=== PATIENT | male | born 1980 | race Caucasian/White ===

== ENCOUNTER 2016-12-31 02:17 | Observation (INO) | payer SELFPAY ==
[2016-12-31 03:25] LABS: Bilirubin Negative (Negative); Blood, Urine Negative (Negative); Glucose, Urine (Dipstick) Negative (Negative); Ketone, Urine Negative (Negative); Nitrite Negative (Negative); Protein, Urine (Dipstick) Negative (Neg-Trace); Urobilinogen 0.2 mg/dL (0.2-1.0)
[2016-12-31] MEDS ORDERED: Ondansetron HCl/PF 4 MG/2 ML Vial ONE ×2 (03:25→10:44)
[2016-12-31] MEDS ORDERED: Ketorolac Tromethamine 30 MG/ML VIAL ONE ×2 (03:25→10:44)
[2016-12-31] MEDS ORDERED: Morphine 4 MG/ML VIAL ONE ×2 (03:25→09:17)
[2016-12-31] MEDS ORDERED: Meropenem 1 GM in Sodium Chloride 0.9% 100 ML IVPB SCH ×2 (03:30→12:00)
[2016-12-31 03:31] LABS: #Lymphocytes 1.5 thou/uL (1.20-3.40); #Monocytes 0.8 thou/uL (0.11-0.59); #Neutrophils 8.2 thou/uL (1.40-6.50); %Basophils 0.4 % (0.0-1.0); %Eosinophils 0.4 % (0.0-10.0); %Lymphocytes 14.3 % (21.0-51.0); %Monocytes 7.7 % (0.0-10.0); Hematocrit 45.3 % (42.0-52.0); Mean Platelet Volume 6.6 fL (7.4-10.4); Red Blood Cell (RBC) Count 4.58 mill/uL (4.70-6.10); White Blood Cell (WBC) Count 10.7 thou/uL (4.8-10.8)
[2016-12-31 03:54] LABS: ALT (SGPT) 15 U/L (8-55); AST (SGOT) 21 U/L (5-34); Alkaline Phosphatase 78 U/L (40-150); Anion Gap 11 mmol/L (10-20); BUN (Urea Nitrogen) 14 mg/dL (8.9-20.6); Bilirubin, Total 0.5 mg/dL (0.2-1.2); CK (CPK) 106 U/L (30-200); Calc. Creatinine Clearance 0 mL/min (70-130); Calcium 9.3 mg/dL (7.8-10.44); Carbon Dioxide 26 mmol/L (22-29); Chloride 102 mmol/L (98-107); Estimated GFR-MDRD 77; Globulin 2.7 g/dL (2.4-3.5); Lipase 5 U/L (8-78); Protein, Total 7.2 g/dL (6.0-8.3)
[2016-12-31 04:14] LABS: Prothrombin Time 12.8 SEC (12.0-14.7)
[2016-12-31 04:15] LABS: PTT 28.8 SEC (22.9-36.1)
[2016-12-31] MEDS ORDERED: Ondansetron HCl/PF 4 MG/2 ML Vial IVP PRN ×3 (04:58→11:34)
[2016-12-31] MEDS ORDERED: Ondansetron ODT 4 MG TAB SL PRN (04:58)
[2016-12-31] MEDS ORDERED: Morphine 4 MG/ML VIAL SLOW IVP PRN ×3 (05:00→07:30)
[2016-12-31] MEDS ORDERED: D5 1/2 NS w/20 mEq KCL 1,000 ML IV SCH ×2 (05:00→07:17)
[2016-12-31] MEDS ORDERED: Ondansetron ODT 4 MG TAB PO PRN (07:17)
[2016-12-31] MEDS ORDERED: Dextrose 5% in Water 1,000 ML IV PRN (07:17)
[2016-12-31] MEDS ORDERED: Morphine 4 MG/ML Carpuject IVP PRN (07:17)
[2016-12-31] MEDS ORDERED: Dextrose 50% Abboject 50 ML SYRINGE SLOW IVP PRN (07:17)
[2016-12-31] MEDS ORDERED: hydrALAZINE 20 MG/ML VIAL SLOW IVP PRN (07:17)
[2016-12-31] MEDS ORDERED: Promethazine HCl 25 MG/ML VIAL IM PRN ×2 (07:17→11:34)
--- NOTE | 2016-12-31 07:18 | HP ---
CHIEF COMPLAINT: Appendicitis. HISTORY OF PRESENT ILLNESS: This is a 36-year-old male who presents with acute onset of severe abdom inal pain in the right lower quadrant yesterday at 5:00 p.m. The pain is described as sharp, 10/10, did not radiate. He was seen in the emergency department overnight where CT scan has revealed acute appendicitis. He denies history of this pain. No history of chronic abdominal pain, no diarrhea, co nstipation, dysuria. The pain is associated with nausea, but no vomiting. CT scan in the emergency department has revealed acute appendicitis. PAST MEDICAL HISTORY: HIV on Atripla. PAST SURGICAL HISTORY: Denies. SOCIAL HISTORY: He smokes 1 pack a day of cigarettes. No alcohol or other drugs. MEDICINES TAKEN DAILY: Atripla, tramadol and Topamax. ALLERGIES: No known drug allergies. REVIEW OF SYSTEMS: Ten system review of systems otherwise negative unless described above. PHYSICAL EXAMINATION: HEENT: Sclerae are anicteric. Oropharynx clear. NECK: No lymphadenopathy. LUNGS: Clear. HEART: Regular rate and rhythm. ABDOMEN: Soft, tender in the right lower quadrant, localized guarding, no rebound, no abdominal or i nguinal hernias. EXTREMITIES: No ischemia or edema to extremities. LABORATORY AND X-RAY FINDINGS: White blood cell count is 10, hemoglobin 15, platelet count is 260. Sodium 135, potassium 4.1, creatinine 1.09. LFTs, lipase normal. CT scan reveals acute appendicitis . ASSESSMENT: Acute appendicitis. PLAN: Laparoscopic appendectomy. Risks, benefits, alternatives discussed. He gives consent. We wi ll do this today.
[2016-12-31] MEDS ORDERED: Morphine PF 1 MG/ML SYR IVP PRN (07:31)
[2016-12-31 07:37] VITALS: BMI 20.8
[2016-12-31] MEDS ORDERED: Famotidine/PF 20 mg/2ml Vial SLOW IVP SCH (09:00)
--- NOTE | 2016-12-31 09:08 | CT ---
PRELIMINARY REPORT/[facility]/EMERGENCY AFTER HOURS PROCEDURE: Addendum created by Ish Estevez MD on 12/31/2016 3:08 AM Central Time ([place] & [place]) THIS REPORT CONTAINS FINDINGS THAT MAY BE CRITICAL TO PATIENT CARE. The findings were verbally commun icated via telephone conference with Joseph Schroeder at 3:08 AM STEEL WHEEL ENGRAVER on 12/31/2016. The findings were acknowl edged and understood. Initial Report created on 12/31/2016 3:00 AM Central Time ([place] & [place]) EXAM: CT Abdomen and Pelvis Without Intravenous Contrast CLINICAL HISTORY: 36 years old, male; Pain; Abdominal pain; Periumbilical; Prior surgery; Patient HX: 36 yo m presents to ed C/O cramping abdominal pain that started this evening. Pt states pain is localized around belly button. Denies diarrhea or vomiting. Pt states he has h/o scar tissue in abdomen after horse flipped over on him. Pt reports h/o hiv. TECHNIQUE: Axial computed tomography images of the abdomen and pelvis without intravenous contrast. Coronal reformatted images were created and reviewed. COMPARISON: No relevant prior studies available. FINDINGS: Lower thorax: No acute findings. ABDOMEN: Liver: Normal. Gallbladder and bile ducts: Normal. Pancreas: Normal. Spleen: Normal. Adrenals: Normal. Kidneys and ureters: Bilateral nonobstructive nephrolithiasis. Stomach and bowel: Normal. Appendix: The appendix is abnormally dilated, measuring up to 11 mm in maximum diameter. Minimal appe ndiceal wall thickening and minimal periappendiceal inflammatory stranding. No perforation or abscess . Appendix is located in conventional position. 2 mm appendicolith within the proximal appendiceal adrian men. Remainder of the appendiceal lumen is fluid filled. PELVIS: Bladder: Normal. Reproductive: Normal as visualized. ABDOMEN and PELVIS: Intraperitoneal space: Normal. No free air. No significant fluid collection. Bones/joints: No acute fracture. No dislocation. Soft tissues: Normal. Vasculature: Normal. No abdominal aortic aneurysm. Lymph nodes: Normal. IMPRESSION: 1. Acute appendicitis, without evidence of perforation or abscess. 2. Incidental/non-acute findings are described above. Thank you for allowing us to participate in the care of your patient. Dictated and Authenticated by: Ish Estevez MD 12/31/2016 3:00 AM Central Time ([place] & [place]) FINAL REPORT ABDOMEN AND PELVIC CT SCAN WITHOUT IV CONTRAST: EMERGENT AFTER HOURS EXAMINATION TIME: 2:44 a.m. DATE: 12/31/16. FINDINGS: Bilateral nonobstructing renal calculi. Evidence for acute appendicitis with associated appendicolit h without evidence of abscess or free air. IMPRESSION: Evidence for acute appendicitis. Nonobstructing bilateral renal calculi. Code QA POS: [facility]
--- NOTE | 2016-12-31 09:22 | RAD ---
PORTABLE UPRIGHT FRONTAL CHEST RADIOGRAPH: Date: 12-31-16 Comparison: 01-13-12 History: Abdominal pain. Pre-operative patient. FINDINGS: No pneumothorax or pleural fluid. No focal consolidation or alveolar edema. Heart and mediastinal con tours are stable as are the osseous structures. IMPRESSION: No acute findings. POS: [facility]
[2016-12-31] MEDS ORDERED: Fentanyl 250 MCG/5 ML VIAL ONE (09:32)
[2016-12-31] MEDS ORDERED: Bupivacaine/Epinephrine 0.25% 30 ML VIAL ONE (09:52)
[2016-12-31] MEDS ORDERED: Midazolam HCl 2 mg/2 ml Vial ONE (10:20)
[2016-12-31] MEDS ORDERED: Meropenem 1 GM in Sodium Chloride 0.9% 100 ML IVPB ONE (10:30)
[2016-12-31] MEDS ORDERED: Lidocaine 1% PF 5 ML VIAL ONE (10:44)
[2016-12-31] MEDS ORDERED: Propofol 200 MG/20 ML VIAL ONE (10:44)
[2016-12-31] MEDS ORDERED: Glycopyrrolate 0.2 MG/ML 5 ML SYRINGE ONE (10:44)
[2016-12-31] MEDS ORDERED: Succinylcholine Chloride 20 MG/ML 10 ml SYRINGE FS ONE (10:44)
[2016-12-31] MEDS ORDERED: Dexamethasone 20 MG/5 ML VIAL ONE (10:44)
[2016-12-31] MEDS ORDERED: Meperidine HCl/PF 25 MG/ML VIAL ONE (11:34)
[2016-12-31] MEDS ORDERED: Meperidine HCl/PF 25 MG/ML VIAL SLOW IVP PRN (11:34)
[2016-12-31] MEDS ORDERED: Promethazine HCl 25 MG/ML VIAL SLOW IVP PRN (11:34)
[2016-12-31] MEDS ORDERED: Fentanyl 100 MCG/2 ML VIAL ONE ×2 (11:40→11:59)
[2016-12-31] MEDS ORDERED: HYDROcodone/Acetaminophen 10/325 mg Tablet PO PRN ×2 (12:30)
[2016-12-31 13:04] VITALS: TEMP 97.7
[2016-12-31 16:43] VITALS: BP 117/68
[2016-12-31] MEDS ORDERED: FLU VACC QS2017-18 36 mo. & older 0.5 ML SYRINGE IM ONE (21:00)
--- NOTE | 2017-01-01 13:11 | OP ---
DATE OF PROCEDURE: 12/31/2016 PREOPERATIVE DIAGNOSIS: Acute appendicitis. POSTOPERATIVE DIAGNOSIS: Acute appendicitis. PROCEDURE: Laparoscopic appendectomy. SURGEON: Aston Argueta M.D. ANESTHESIA: General. ESTIMATED BLOOD LOSS: Minimal. COMPLICATIONS: None. SPECIMEN: Appendix. FINDINGS: Appendicitis. TECHNIQUE: The patient was taken to the operating room and placed supine on the table. After genera l anesthetic was obtained, a Hayes was placed. The abdomen was shaved, prepped and draped in a steri le fashion. Curved incision made below the umbilicus. Cautery was used to dissect down to and score the fascia. Abdominal cavity entered bluntly using a Vane clamp. Holding stitch of PDS was on eac h side of the fascia. Caleb trocar was placed. High-flow pneumoperitoneum was obtained. A suprapu bic 5-mm port and a left lower quadrant 5-mm port were placed under direct visualization. The cecum was rolled over to reveal acute appendicitis. A small window was made at the base of the appendix. A laparoscopic stapler was fired across the base of the appendix. A vascular reload fired across the mesoappendix. Appendix was placed in an Endo catch bag and brought out through the Caleb. There w as no damage to any intraabdominal structures. No evidence of purulence in the right lower quadrant. Pelvis was irrigated using sterile solution. No bleeding on the staple lines. All ports were morales chuck under camera visualization. Pneumoperitoneum was let down. PDS was used to close the fascial de fect below the umbilicus. All incisions were irrigated and closed using 4-0 Monocryl and Dermabond. The patient was en route to recovery in stable condition. All instrument counts, needle counts, and lap counts were correct.
--- NOTE | 2017-01-01 13:11 | DIS ---
DATE OF ADMISSION: 12/31/2016 DATE OF DISCHARGE: 12/31/2016 ADMITTING DIAGNOSIS: Acute appendicitis. DISCHARGE DIAGNOSIS: Acute appendicitis. PROCEDURES: Laparoscopic appendectomy by Dr. Argueta without complication. CONDITION AT DISCHARGE: Improved. STAFF: Aston Argueta M.D. HOSPITAL COURSE: See hospital chart for details of hospitalization.
== END 2016-12-31 16:28 | disposition home or self-care (01) ==
LOC: ERS 02:17 → SURG A 04:52
PROVIDERS: ADMIT Surgery; ATTEND Surgery
PROC: 0DTJ4ZZ Resection of Appendix, Percutaneous Endoscopic Approach (ICD-10-PCS; principal; 2016-12-31)
DX: K35.80 Unspecified acute appendicitis (principal); Z88.0 Allergy status to penicillin; F17.210 Nicotine dependence, cigarettes, uncomplicated; F41.9 Anxiety disorder, unspecified; F32.9 Major depressive disorder, single episode, unspecified; Z79.899 Other long term (current) drug therapy; Z21 Asymptomatic human immunodeficiency virus [HIV] infection status
CPT/HCPCS: 71010; 74176; 80053; 81003; 82550; 83690; 85025; 85610; 85730; 88304; 93005; 96361; 96365; 96374; 96375; 96376; A4216; G0378; J0131; J1100; J1885; J2001; J2175; J2185; J2250; J2270; J2274; J2405; J2704; J3010; J7050; S0028

== ENCOUNTER 2019-07-14 07:36 | Outpatient (CLI) | payer OTHER ==
--- NOTE | 2019-07-14 08:20 | ULT ---
EXAM: US Soft Tissue Abd Wall PROVIDED CLINICAL HISTORY: Abdominal wall pain. Patient states a horse stepped on him 10 years ago, and patient has continued to have pain in the region of the right flank. COMPARISON: None FINDINGS: Limited sonographic evaluation in the region of the right flank was obtained. The right kidney is gemma ged and has a normal sonographic appearance without hydronephrosis and measures 9.5 cm x 3.9 cm. The overlying soft tissues in this region demonstrate no fluid collection to suggest hematoma, and no soft tissue mass is seen by sonographic evaluation. The most inferior aspect of the visualized right hepatic lobe has a normal sonographic appearance. IMPRESSION: No soft tissue abnormality identified by sonographic evaluation in the region of the right flank. If clinically warranted, CT scan abdomen may be helpful for further evaluation.
== END 2019-07-14 07:37 | disposition home or self-care (01) ==
LOC: BICULT 07:36
PROVIDERS: ATTEND Family Medicine
DX: R10.9 Unspecified abdominal pain (principal)
CPT/HCPCS: 76705